=== PATIENT | female | born 1965 | race Caucasian/White ===

== ENCOUNTER 2019-02-17 17:15 | Emergency (ER) | payer BC ==
[~2019-02-17] VITALS: Ht 165.1 cm; Wt 81.7 kg
[2019-02-17] MEDS ORDERED: PATADAY2.5 ML EA. EYE (18:21)
[2019-02-17 19:14] VITALS: BP 138/74
== END 2019-02-17 19:14 | disposition home or self-care (01) ==
LOC: M.ERS 17:15
DX: H57.89 Other specified disorders of eye and adnexa (principal); G43.909 Migraine, unspecified, not intractable, without status migrainosus; Z88.1 Allergy status to other antibiotic agents; Z88.5 Allergy status to narcotic agent; Z88.8 Allergy status to other drugs, medicaments and biological substances